=== PATIENT | male | born 1955 | race Hispanic/Latino ===

== ENCOUNTER 2020-12-05 13:20 | Inpatient (IN) | payer MEDICARE, OTHER ==
[~2020-12-05] VITALS: Ht 157.5 cm; Wt 79.4 kg
[2020-12-05] MEDS ORDERED: ASPIRIN 81 MG CHEW TAB PO ONE (14:00)
[2020-12-05] MEDS ORDERED: MORPHINE SULFATE INJ 4 MG/ML INJ 1ML IV STA (14:17)
[2020-12-05] MEDS ORDERED: SODIUM CHLORIDE 0.9% 1000ML 1,000 ML IV STA (14:17)
[2020-12-05] MEDS ORDERED: ONDANSETRON HCL INJ 2MG/ML 2ML 2 MG/ML VIAL IV STA (14:17)
[2020-12-05 14:20] LABS: BASOPHILS % 0.2 % (0.0-1.0); EOSINOPHILS % 0.1 % (0.0-6.0); HEMOGLOBIN 12.7 g/dL (14.0-18.0); LYMPHOCYTES # (AUTO) 1.3 (1.0-3.2); LYMPHOCYTES % 8.2 % (18.0-39.1); MEAN CORPUSCULAR HEMOGLOBIN 29.4 pg (28-32); MEAN CORPUSCULAR HGB CONC 32.6 g/dL (31-35); MEAN CORPUSCULAR VOLUME 90.3 fL (81-99); MONOCYTES % 6.4 % (4.4-11.3); NEUTROPHILS # (AUTO) 13.7 (2.1-6.9); NEUTROPHILS % 83.8 % (38.7-80.0); PLATELET COUNT 291 x10e3/uL (140-360); RED BLOOD COUNT 4.32 x10e6/uL (4.3-5.7); RED CELL DISTRIBUTION WIDTH 12.9 % (11.7-14.4)
[2020-12-05 14:38] LABS: ALBUMIN 3.4 g/dL (3.5-5.0); ANION GAP 16.5 mmol/L (8-16); CALCIUM 8.3 mg/dL (8.4-10.2); CREATININE, SERUM 1.02 mg/dL (0.72-1.25); POTASSIUM 3.5 mmol/L (3.5-5.1)
[2020-12-05 14:46] LABS: CLARITY,URINE CLEAR (CLEAR); COLOR,URINE YELLOW (YELLOW); LEUKOCYTE ESTERASE ,URINE NEGATIVE (NEGATIVE); NITRITE,URINE NEGATIVE (NEGATIVE)
[2020-12-05 14:47] LABS: AMORPHOUS SEDIMENT,URINE FEW (FEW); KETONES,URINE TRACE (NEGATIVE); PROTEIN,URINE DIPSTICK TRACE (NEGATIVE); URINE UROBILINOGEN 0.2 mg/dL (0.2 - 1)
[2020-12-05 14:48] LABS: CREATINE KINASE MB 0.4 ng/mL (0-5.0); MUCUS,URINE FEW (RARE)
[2020-12-05 14:49] LABS: EPITHELIAL CELLS,URINE FEW /LPF; RBC,URINE 0-5 /HPF (0-5); WBC,URINE (MAN) 0-5 /HPF (0-5)
[2020-12-05] MEDS ORDERED: SODIUM CHLORIDE 0.9% 50ML 50 ML ONE (15:32)
[2020-12-05] MEDS ORDERED: IOPAMIDOL 370 MG/ML 200 ML INFUS..BTL INJ ONE (15:32)
[2020-12-05 15:46] LABS: AMYLASE 68 U/L (25-125); LIPASE 44 U/L (8-78)
[2020-12-05] MEDS ORDERED: PIPERACILLIN/TAZOBACTAM 3.375 GM in SODIUM CHLORIDE 0.9% 50ML 50 ML IV ONE (17:45)
[2020-12-05] MEDS ORDERED: SODIUM CHLORIDE 0.9% 100 ML ONE (18:05)
[2020-12-05] MEDS ORDERED: PIPERACILLIN/TAZOBACTAM 3.375 GM VIAL ONE (18:05)
[2020-12-05] MEDS ORDERED: ACETAMINOPHEN 325 MG TAB PO ONE (18:15)
[2020-12-05] MEDS ORDERED: ACETAMINOPHEN 325 MG TAB ONE (18:15)
[2020-12-05] MEDS ORDERED: ACETAMINOPHEN 1000 MG/100 ML IV PRN (19:45)
[2020-12-05] MEDS ORDERED: BENZOCAINE/TETRACAINE/BUTAMBEN AERO SPRAY 56 GM CAN ONE (20:09)
[2020-12-05] MEDS: SODIUM CHLORIDE 0.9% 1000ML 1,000 ML IV SCH (20:12)
[2020-12-05] MEDS ORDERED: BENZOCAINE/TETRACAINE/BUTAMBEN AERO SPRAY 56 GM CAN TOP ONE (20:15)
[2020-12-06] MEDS: PIPERACILLIN/TAZOBACTAM 3.375 GM in SODIUM CHLORIDE 0.9% 50ML 50 ML IV SCH ×4 (03:00→21:29)
[2020-12-06] MEDS: ONDANSETRON HCL INJ 2MG/ML 2ML 2 MG/ML VIAL IV PRN (09:01)
[2020-12-06] MEDS: SODIUM CHLORIDE 0.9% 1000ML 1,000 ML IV SCH ×3 (09:01→19:45)
[2020-12-06] MEDS: MORPHINE SULFATE INJ 4 MG/ML INJ 1ML IV PRN (09:01)
[2020-12-06 13:13] LABS: BASOPHILS # (AUTO) 0.1 (0.0-0.1); BASOPHILS % 0.4 % (0.0-1.0); EOSINOPHILS # (AUTO) 0.1 (0.0-0.4); EOSINOPHILS % 0.7 % (0.0-6.0); HEMATOCRIT 36.3 % (38.2-49.6); HEMOGLOBIN 11.6 g/dL (14.0-18.0); LYMPHOCYTES # (AUTO) 2.5 (1.0-3.2); LYMPHOCYTES % 17.8 % (18.0-39.1); MEAN CORPUSCULAR HEMOGLOBIN 29.3 pg (28-32); MEAN CORPUSCULAR VOLUME 91.7 fL (81-99); MONOCYTES # (AUTO) 1.4 (0.2-0.8); MONOCYTES % 9.9 % (4.4-11.3); NEUTROPHILS # (AUTO) 9.9 (2.1-6.9); NEUTROPHILS % 70.3 % (38.7-80.0); PLATELET COUNT 235 x10e3/uL (140-360); RED BLOOD COUNT 3.96 x10e6/uL (4.3-5.7); RED CELL DISTRIBUTION WIDTH 13.2 % (11.7-14.4)
[2020-12-06 13:42] LABS: ALBUMIN 2.7 g/dL (3.5-5.0); ANION GAP 12.5 mmol/L (8-16); CALCIUM 7.6 mg/dL (8.4-10.2); CREATININE, SERUM 0.79 mg/dL (0.72-1.25); POTASSIUM 3.5 mmol/L (3.5-5.1)
[2020-12-06 17:44] VITALS: BP 115/75
[2020-12-06 18:22] VITALS: BP 115/75
[2020-12-06 20:19] VITALS: BP 127/79
[2020-12-06 20:49] VITALS: BP 127/78
[2020-12-06] MEDS ORDERED: OXYCODONE HCL20 M1 PO (21:05)
[2020-12-06] MEDS ORDERED: MAGNESIUM OXID400 MG PO (21:05)
[2020-12-06] MEDS ORDERED: TACROLIMUS1 MG PO (21:06)
[2020-12-06] MEDS ORDERED: ASPIRIN81 MG PO (21:07)
[2020-12-06] MEDS ORDERED: FUROSEMIDE40 MG PO (21:07)
[2020-12-06] MEDS ORDERED: PROTONIX20 MG PO (21:09)
[2020-12-06] MEDS ORDERED: NIFEDIPINE ER30 M1 PO (21:09)
[2020-12-06] MEDS ORDERED: LISINOPRIL10 MG PO (21:10)
[2020-12-06] MEDS ORDERED: FEROSUL325 MG PO (21:11)
[2020-12-06] MEDS ORDERED: LORATADINE10 MG PO (21:14)
[2020-12-06] MEDS ORDERED: FLONASE ALLERG9.9 ML INH (21:14)
[2020-12-06] MEDS ORDERED: CENTRUM SILVER1 EAC3 (21:15)
[2020-12-06] MEDS ORDERED: POLYETHYLENE GL17 GM PO (21:16)
[2020-12-07] VITALS (7 sets, daily range): BP systolic 122–147; BP diastolic 66–90
[2020-12-07] MEDS ORDERED: IRON PO (01:02)
[2020-12-07] MEDS: SODIUM CHLORIDE 0.9% 1000ML 1,000 ML IV SCH ×3 (01:12→19:45)
[2020-12-07] MEDS: PIPERACILLIN/TAZOBACTAM 3.375 GM in SODIUM CHLORIDE 0.9% 50ML 50 ML IV SCH ×3 (05:20→21:44)
[2020-12-07] MEDS: MORPHINE SULFATE INJ 4 MG/ML INJ 1ML IV PRN (10:37)
[2020-12-08] VITALS (7 sets, daily range): BP systolic 127–158; BP diastolic 64–99
[2020-12-08] MEDS: PIPERACILLIN/TAZOBACTAM 3.375 GM in SODIUM CHLORIDE 0.9% 50ML 50 ML IV SCH ×3 (06:20→22:24)
[2020-12-08] MEDS: SODIUM CHLORIDE 0.9% 1000ML 1,000 ML IV SCH ×2 (06:21→12:08)
[2020-12-08 08:29] LABS: ANION GAP 15.5 mmol/L (8-16); CALCIUM 8.3 mg/dL (8.4-10.2); CREATININE, SERUM 0.7 mg/dL (0.72-1.25); POTASSIUM 3.5 mmol/L (3.5-5.1)
[2020-12-08 08:46] LABS: MAGNESIUM 1.4 MG/DL (1.3-2.1); PHOSPHORUS 2.5 MG/DL (2.3-4.7)
[2020-12-08] MEDS: MORPHINE SULFATE INJ 4 MG/ML INJ 1ML IV PRN (14:28)
[2020-12-09] VITALS (8 sets, daily range): BP systolic 106–141; BP diastolic 70–78
[2020-12-09] MEDS: SODIUM CHLORIDE 0.9% 1000ML 1,000 ML IV SCH ×4 (03:45→19:45)
[2020-12-09 05:40] LABS: BASOPHILS # (AUTO) 0.1 (0.0-0.1); BASOPHILS % 0.8 % (0.0-1.0); EOSINOPHILS # (AUTO) 0.2 (0.0-0.4); EOSINOPHILS % 2.7 % (0.0-6.0); HEMATOCRIT 36.7 % (38.2-49.6); LYMPHOCYTES # (AUTO) 2.1 (1.0-3.2); LYMPHOCYTES % 34.2 % (18.0-39.1); MEAN CORPUSCULAR HEMOGLOBIN 29.3 pg (28-32); MEAN CORPUSCULAR HGB CONC 32.7 g/dL (31-35); MEAN CORPUSCULAR VOLUME 89.7 fL (81-99); MONOCYTES # (AUTO) 0.7 (0.2-0.8); MONOCYTES % 11.2 % (4.4-11.3); NEUTROPHILS # (AUTO) 3.2 (2.1-6.9); NEUTROPHILS % 50.6 % (38.7-80.0); PLATELET COUNT 271 x10e3/uL (140-360); RED BLOOD COUNT 4.09 x10e6/uL (4.3-5.7); RED CELL DISTRIBUTION WIDTH 12.9 % (11.7-14.4)
[2020-12-09] MEDS: PIPERACILLIN/TAZOBACTAM 3.375 GM in SODIUM CHLORIDE 0.9% 50ML 50 ML IV SCH ×3 (05:54→20:43)
[2020-12-09 05:55] LABS: ANION GAP 12.7 mmol/L (8-16); BLOOD UREA NITROGEN < 5 mg/dL (7-26); CALCIUM 8.3 mg/dL (8.4-10.2); CARBON DIOXIDE 23 mmol/L (22-29); CHLORIDE 109 mmol/L (98-107); CREATININE, SERUM 0.68 mg/dL (0.72-1.25); EST GLOMERULAR FILTRATION RATE 116 ML/MIN (60-); GLUCOSE 127 mg/dL (74-118); POTASSIUM 3.7 mmol/L (3.5-5.1); SODIUM 141 mmol/L (136-145)
[2020-12-09 06:31] LABS: BILIRUBIN,DIRECT 0.2 mg/dL (0.0-0.5); MAGNESIUM 1.6 MG/DL (1.3-2.1); PHOSPHORUS 3.7 MG/DL (2.3-4.7)
[2020-12-09 07:06] LABS: BUN/CREATININE RATIO 7 (6-25)
[2020-12-09] MEDS: TACROLIMUS 1 MG CAP PO SCH (20:43)
[2020-12-09] MEDS: MORPHINE SULFATE INJ 4 MG/ML INJ 1ML IV PRN (20:53)
[2020-12-10] VITALS (8 sets, daily range): BP systolic 122–148; BP diastolic 68–79
[2020-12-10] MEDS: PIPERACILLIN/TAZOBACTAM 3.375 GM in SODIUM CHLORIDE 0.9% 50ML 50 ML IV SCH ×3 (05:47→22:15)
[2020-12-10] MEDS: SODIUM CHLORIDE 0.9% 1000ML 1,000 ML IV SCH ×3 (05:48→19:45)
[2020-12-10] MEDS: LISINOPRIL 10 MG TAB PO SCH (09:56)
[2020-12-10] MEDS: NIFEDIPINE CR 30 MG TAB PO SCH (09:56)
[2020-12-10] MEDS: TACROLIMUS 1 MG CAP PO SCH ×2 (17:33→22:15)
[2020-12-10] MEDS: ONDANSETRON HCL INJ 2MG/ML 2ML 2 MG/ML VIAL IV PRN (23:50)
[2020-12-10] MEDS: MORPHINE SULFATE INJ 4 MG/ML INJ 1ML IV PRN (23:50)
[2020-12-11 01:02] VITALS: BP 106/68
[2020-12-11] MEDS: SODIUM CHLORIDE 0.9% 1000ML 1,000 ML IV SCH (05:25)
[2020-12-11] MEDS: PIPERACILLIN/TAZOBACTAM 3.375 GM in SODIUM CHLORIDE 0.9% 50ML 50 ML IV SCH (05:25)
[2020-12-11 05:39] VITALS: BP 127/66
[2020-12-11 06:55] LABS: BASOPHILS # (AUTO) 0.1 (0.0-0.1); BASOPHILS % 1.2 % (0.0-1.0); EOSINOPHILS # (AUTO) 0.2 (0.0-0.4); EOSINOPHILS % 3.3 % (0.0-6.0); HEMATOCRIT 36.6 % (38.2-49.6); HEMOGLOBIN 11.9 g/dL (14.0-18.0); LYMPHOCYTES # (AUTO) 2.3 (1.0-3.2); LYMPHOCYTES % 37.3 % (18.0-39.1); MEAN CORPUSCULAR HEMOGLOBIN 29.6 pg (28-32); MEAN CORPUSCULAR HGB CONC 32.5 g/dL (31-35); MONOCYTES # (AUTO) 0.9 (0.2-0.8); MONOCYTES % 14.1 % (4.4-11.3); NEUTROPHILS # (AUTO) 2.7 (2.1-6.9); NEUTROPHILS % 43.8 % (38.7-80.0); PLATELET COUNT 288 x10e3/uL (140-360); RED BLOOD COUNT 4.02 x10e6/uL (4.3-5.7); RED CELL DISTRIBUTION WIDTH 13.3 % (11.7-14.4)
[2020-12-11 07:16] LABS: ANION GAP 12.6 mmol/L (8-16); BLOOD UREA NITROGEN < 5 mg/dL (7-26); CALCIUM 8.4 mg/dL (8.4-10.2); CARBON DIOXIDE 22 mmol/L (22-29); CHLORIDE 108 mmol/L (98-107); CREATININE, SERUM 0.66 mg/dL (0.72-1.25); EST GLOMERULAR FILTRATION RATE 120 ML/MIN (60-); GLUCOSE 117 mg/dL (74-118); MAGNESIUM 1.6 MG/DL (1.3-2.1); POTASSIUM 3.6 mmol/L (3.5-5.1); SODIUM 139 mmol/L (136-145)
[2020-12-11 07:17] LABS: BUN/CREATININE RATIO 8 (6-25)
[2020-12-11 08:09] VITALS: BP 132/66
[2020-12-11 08:30] VITALS: BP 132/66
[2020-12-11] MEDS: LISINOPRIL 10 MG TAB PO SCH (09:00)
[2020-12-11] MEDS: NIFEDIPINE CR 30 MG TAB PO SCH (09:00)
[2020-12-11] MEDS: TACROLIMUS 1 MG CAP PO SCH (09:00)
[2020-12-11] MEDS ORDERED: ZOFRAN4 MG PO (09:11)
[2020-12-11] MEDS ORDERED: ONDANSETRON HCL 4 MG ORAL DISINTEGRATING TAB PO PRN (11:45)
[2020-12-12] MEDS ORDERED: PANTOPRAZOLE SOD 40 MG TABEC PO SCH (07:30)
== END 2020-12-11 12:51 | disposition home or self-care (01) | DRG 872 ==
LOC: ER 14:11 → ERHOLD 19:38 → MED/SURG2 12-06 16:44
PROVIDERS: ADMIT Internal Medicine; ATTEND Internal Medicine
DX: A41.9 Sepsis, unspecified organism (principal); K56.609 Unspecified intestinal obstruction, unspecified as to partial versus complete obstruction; Z94.4 Liver transplant status; Z20.822 Contact with and (suspected) exposure to COVID-19; F10.21 Alcohol dependence, in remission; I10 Essential (primary) hypertension; R91.1 Solitary pulmonary nodule; E27.9 Disorder of adrenal gland, unspecified
CPT/HCPCS: 36415; 74018; 74177; 80048; 80053; 80076; 81001; 82150; 82550; 82553; 83605; 83690; 83735; 84100; 84484; 85025; 87040; 87493; 93005; 99251; J2270; J2405; J2543; J7030; J7050; J7507; Q9967; U0002

== ENCOUNTER 2021-11-20 15:05 | Emergency (ER) | payer MEDICARE, OTHER ==
[~2021-11-20] VITALS: Ht 157.5 cm; Wt 79.4 kg
[~2021-11-20 15:05] MED LIST: ASPIRIN81 MG PO; CENTRUM SILVER1 EAC3; FEROSUL325 MG PO; FLONASE ALLERG9.9 ML INH; FUROSEMIDE40 MG PO; IRON PO; LISINOPRIL10 MG PO; LORATADINE10 MG PO; MAGNESIUM OXID400 MG PO; NIFEDIPINE ER30 M1 PO; OXYCODONE HCL20 M1 PO; POLYETHYLENE GL17 GM PO; PROTONIX20 MG PO; TACROLIMUS1 MG PO; ZOFRAN4 MG PO
[2021-11-20] MEDS ORDERED: SODIUM CHLORIDE 0.9% 500ML 500 ML IV ONE ×2 (15:30→16:30)
[2021-11-20 15:50] LABS: BASOPHILS % 0.3 % (0.0-1.0); EOSINOPHILS % 0.5 % (0.0-6.0); HEMATOCRIT 25.5 % (38.2-49.6); HEMOGLOBIN 7.6 g/dL (14.0-18.0); LYMPHOCYTES # (AUTO) 0.7 (1.0-3.2); LYMPHOCYTES % 11.1 % (18.0-39.1); MEAN CORPUSCULAR HEMOGLOBIN 23.8 pg (28-32); MEAN CORPUSCULAR HGB CONC 29.8 g/dL (31-35); MEAN CORPUSCULAR VOLUME 79.7 fL (81-99); MONOCYTES # (AUTO) 0.9 (0.2-0.8); MONOCYTES % 14.1 % (4.4-11.3); NEUTROPHILS # (AUTO) 4.4 (2.1-6.9); NEUTROPHILS % 72.8 % (38.7-80.0); PLATELET COUNT 329 x10e3/uL (140-360); RED CELL DISTRIBUTION WIDTH 18.1 % (11.7-14.4)
[2021-11-20 15:58] LABS: INR 1.58; PROTHROMBIN TIME 20.2 seconds (11.9-14.5)
[2021-11-20 15:59] LABS: PARTIAL THROMBOPLASTIN TIME 49.1 seconds (23.8-35.5)
[2021-11-20 16:06] LABS: ALBUMIN 2.2 g/dL (3.5-5.0); ALBUMIN/GLOBULIN RATIO 0.4 (0.8-2.0); ANION GAP 16.5 mmol/L (8-16); CREATININE, SERUM 1.5 mg/dL (0.72-1.25); MAGNESIUM 1.6 MG/DL (1.3-2.1); POTASSIUM 3.5 mmol/L (3.5-5.1)
[2021-11-20 16:13] LABS: CREATINE KINASE MB 0.8 ng/mL (0-5.0)
[2021-11-20 16:23] LABS: B-TYPE NATRIURETIC PEPTIDE2 97.1 pg/mL (0-100)
[2021-11-20 16:47] LABS: CLARITY,URINE HAZY (CLEAR); COLOR,URINE AMBER (YELLOW)
[2021-11-20 16:48] LABS: AMORPHOUS SEDIMENT,URINE FEW (FEW); BACTERIA,URINE FEW /HPF; EPITHELIAL CELLS,URINE FEW /LPF; KETONES,URINE TRACE (NEGATIVE); LEUKOCYTE ESTERASE ,URINE SMALL (NEGATIVE); NITRITE,URINE NEGATIVE (NEGATIVE); PROTEIN,URINE DIPSTICK 2+ (NEGATIVE); RBC,URINE >50 /HPF (0-5); URINE UROBILINOGEN 0.2 mg/dL (0.2 - 1)
[2021-11-20 16:49] LABS: MUCUS,URINE FEW (RARE)
[2021-11-20] MEDS ORDERED: Vancomycin IV 1 GM in SODIUM CHLORIDE 0.9% 250ML 250 ML IV ONE (17:00)
[2021-11-20] MEDS ORDERED: SODIUM CHLORIDE 0.9% 1000ML 1,000 ML IV STA (17:11)
[2021-11-20] MEDS ORDERED: SODIUM CHLORIDE 0.9% 1000ML 1,000 ML IV SCH (18:45)
[2021-11-20] MEDS ORDERED: SODIUM CHLORIDE 0.9% 1000ML 1,000 ML ONE (18:52)
== END 2021-11-20 21:19 | disposition other institution (70) ==
LOC: ER 15:20
DX: R50.9 Fever, unspecified (principal); A41.9 Sepsis, unspecified organism; U07.1 COVID-19; L03.116 Cellulitis of left lower limb; M86.9 Osteomyelitis, unspecified; I10 Essential (primary) hypertension; Z89.512 Acquired absence of left leg below knee; Z94.4 Liver transplant status
CPT/HCPCS: 36415; 71045; 73590; 80053; 81001; 82550; 82553; 83605; 83735; 83880; 84484; 85025; 85610; 85730; 87040; 87086; 93005; 99284; J2543; J3370; J7030; J7040; J7050; U0002

== ENCOUNTER → 2023-12-06 | Outpatient (REF) | payer MEDICARE, OTHER ==
[~2023-12-06] MED LIST changes: +ELIQUIS5 MG PO; +GABAPENTIN300 MG PO; +LOSARTAN POTASS50 MG PO; +MAGNESIUM OXID400 M1 PO; +METOPROLOL SUCC25 MG PO; +OS-CAL 500+D T1 EACH PO; +PANTOPRAZOLE SO40 MG PO; +RESTASIS1 EACH OU; +TAMSULOSIN PO; +TRAZODONE HCL50 MG PO
== END ==
LOC: RAD 11:35
PROVIDERS: ATTEND Anesthesiology Pain Medicine
DX: M16.0 Bilateral primary osteoarthritis of hip (principal)
CPT/HCPCS: 73522

== ENCOUNTER 2024-08-02 14:53 | Emergency (ER) | payer MEDICARE, MEDICAID ==
[~2024-08-02] VITALS: Ht 175.3 cm; Wt 99.8 kg
[2024-08-02 16:20] LABS: BASOPHILS # (AUTO) 0.1 (0.0-0.1); BASOPHILS % 0.7 % (0.0-1.0); EOSINOPHILS # (AUTO) 0.2 (0.0-0.4); EOSINOPHILS % 2.5 % (0.0-6.0); HEMATOCRIT 32.7 % (38.2-49.6); HEMOGLOBIN 10.2 g/dL (14.0-18.0); LYMPHOCYTES # (AUTO) 2.2 (1.0-3.2); LYMPHOCYTES % 31.3 % (18.0-39.1); MEAN CORPUSCULAR HGB CONC 31.2 g/dL (31-35); MEAN CORPUSCULAR VOLUME 83.2 fL (81-99); MONOCYTES # (AUTO) 0.8 (0.2-0.8); MONOCYTES % 11.9 % (4.4-11.3); NEUTROPHILS # (AUTO) 3.7 (2.1-6.9); NEUTROPHILS % 53.2 % (38.7-80.0); PLATELET COUNT 234 x10e3/uL (140-360); RED BLOOD COUNT 3.93 x10e6/uL (4.3-5.7); WHITE BLOOD COUNT 6.89 x10e3/uL (4.8-10.8)
[2024-08-02 16:24] LABS: INR 0.94; PROTHROMBIN TIME 13.2 seconds (11.9-14.5)
[2024-08-02 16:35] LABS: ALBUMIN 3.3 g/dL (3.5-5.0); ALBUMIN/GLOBULIN RATIO 0.8 (0.8-2.0); ANION GAP 15.3 mmol/L (8-16); BILIRUBIN,TOTAL 0.4 mg/dL (0.2-1.2); CALCIUM 8.6 mg/dL (8.4-10.2); CREATININE, SERUM 0.92 mg/dL (0.72-1.25); MAGNESIUM 1.6 MG/DL (1.3-2.1); POTASSIUM 4.3 mmol/L (3.5-5.1); TOTAL PROTEIN 7.6 g/dL (6.5-8.1)
[2024-08-02 16:40] LABS: TROPONIN I 0.005 ng/mL (0-0.300)
[2024-08-02 18:06] LABS: BILIRUBIN,URINE NEGATIVE (NEGATIVE); CLARITY,URINE CLEAR (CLEAR); COLOR,URINE YELLOW (YELLOW); GLUCOSE, URINE NEGATIVE (NEGATIVE); KETONES,URINE NEGATIVE (NEGATIVE); LEUKOCYTE ESTERASE ,URINE NEGATIVE (NEGATIVE); NITRITE,URINE NEGATIVE (NEGATIVE); PH,URINE 6 (5 - 7); PROTEIN,URINE DIPSTICK 1+ (NEGATIVE); URINE UROBILINOGEN 0.2 mg/dL (0.2 - 1)
[2024-08-02 18:26] LABS: BACTERIA,URINE FEW /HPF
[2024-08-02] MEDS ORDERED: MECLIZINE HCL12.5 MG PO (18:34)
[2024-08-02 19:04] VITALS: PULSE 77; RESP 18; TEMP 98.2
[2024-08-02 19:39] VITALS: BP 128/70; O2SAT 99
== END 2024-08-02 19:25 | disposition home or self-care (01) ==
LOC: ER 16:12
DX: R42 Dizziness and giddiness (principal); I10 Essential (primary) hypertension; E11.9 Type 2 diabetes mellitus without complications; I50.9 Heart failure, unspecified; I48.91 Unspecified atrial fibrillation; K76.9 Liver disease, unspecified; D64.9 Anemia, unspecified; M19.09 Primary osteoarthritis, other specified site; Z86.718 Personal history of other venous thrombosis and embolism
CPT/HCPCS: 36415; 70450; 71045; 74176; 80053; 81001; 82550; 83735; 83880; 84484; 85025; 85610; 85730; 87086; 93005; 99284

== ENCOUNTER 2024-09-23 09:28 | Inpatient (IN) | payer MEDICARE ==
[~2024-09-23] VITALS: Ht 175.3 cm; Wt 99.8 kg
[~2024-09-23 09:28] MED LIST changes: +MECLIZINE HCL12.5 MG PO
[2024-09-23 09:35] VITALS: TEMP 98.4
[2024-09-23 10:09] LABS: BASOPHILS # (AUTO) 0.1 (0.0-0.1); BASOPHILS % 0.9 % (0.0-1.0); EOSINOPHILS # (AUTO) 0.3 (0.0-0.4); EOSINOPHILS % 4.1 % (0.0-6.0); HEMATOCRIT 29.7 % (38.2-49.6); HEMOGLOBIN 8.6 g/dL (14.0-18.0); LYMPHOCYTES # (AUTO) 1.9 (1.0-3.2); LYMPHOCYTES % 28.8 % (18.0-39.1); MEAN CORPUSCULAR HEMOGLOBIN 21.7 pg (28-32); MONOCYTES # (AUTO) 0.7 (0.2-0.8); MONOCYTES % 10.6 % (4.4-11.3); NEUTROPHILS # (AUTO) 3.6 (2.1-6.9); NEUTROPHILS % 54.4 % (38.7-80.0); PLATELET COUNT 264 x10e3/uL (140-360); RED BLOOD COUNT 3.96 x10e6/uL (4.3-5.7); RED CELL DISTRIBUTION WIDTH 18.6 % (11.7-14.4); WHITE BLOOD COUNT 6.63 x10e3/uL (4.8-10.8)
[2024-09-23 10:35] LABS: INR 1.33; PROTHROMBIN TIME 17.6 seconds (11.9-14.5)
[2024-09-23 10:36] LABS: PARTIAL THROMBOPLASTIN TIME 36.5 seconds (23.8-35.5)
[2024-09-23 10:46] LABS: ALBUMIN 3.4 g/dL (3.5-5.0); ALBUMIN/GLOBULIN RATIO 0.8 (0.8-2.0); ANION GAP 14.2 mmol/L (8-16); BILIRUBIN,TOTAL 0.4 mg/dL (0.2-1.2); CALCIUM 8.7 mg/dL (8.4-10.2); CREATININE, SERUM 0.9 mg/dL (0.72-1.25); MAGNESIUM 1.4 MG/DL (1.3-2.1); POTASSIUM 4.2 mmol/L (3.5-5.1); TOTAL PROTEIN 7.5 g/dL (6.5-8.1)
[2024-09-23 10:52] LABS: TROPONIN I 0.011 ng/mL (0-0.300)
[2024-09-23] MEDS ORDERED: IOPAMIDOL 370 MG/ML 100 ML INFUS..BTL INJ ONE (10:52)
[2024-09-23 12:30] VITALS: PULSE 67; RESP 18
[2024-09-23] MEDS ORDERED: ONDANSETRON HCL INJ 2MG/ML 2ML 2 MG/ML VIAL IV PRN (13:00)
[2024-09-23 14:00] VITALS: BP 143/65; PULSE 62; RESP 20; TEMP 98; O2SAT 99
[2024-09-23] MEDS ORDERED: FERROUS SULFAT325 MG PO (15:01)
[2024-09-23] MEDS ORDERED: FINASTERIDE5 MG PO (15:01)
[2024-09-23] MEDS ORDERED: MECLIZINE HCL12.5 MG PO (15:01)
[2024-09-23] MEDS ORDERED: HYDRALAZINE HCL25 MG PO (15:01)
[2024-09-23] MEDS ORDERED: MELATONIN3 MG PO (15:06)
[2024-09-23] MEDS ORDERED: LANTUS 3ML100 UNITS/ SC (15:06)
[2024-09-23 16:24] VITALS: BP 143/65; PULSE 62; RESP 20; TEMP 98; O2SAT 99
[2024-09-23 20:00] VITALS: BP 143/73; PULSE 65; RESP 20; TEMP 97.9; O2SAT 98
[2024-09-24] VITALS (9 sets, daily range): BP systolic 131–159; BP diastolic 58–79; PULSE 66–73; RESP 17–20; TEMP 97.3–98.2; O2SAT 96–100
[2024-09-24] MEDS ORDERED: DEXTROSE 50% SYRINGE 50 ML IV PRN (01:45)
[2024-09-24] MEDS ORDERED: MELATONIN 5 MG TABLET PO PRN (01:45)
[2024-09-24] MEDS ORDERED: TACROLIMUS1 MG PO (04:44)
[2024-09-24 06:44] LABS: BASOPHILS # (AUTO) 0.1 (0.0-0.1); BASOPHILS % 0.8 % (0.0-1.0); EOSINOPHILS # (AUTO) 0.3 (0.0-0.4); EOSINOPHILS % 5.4 % (0.0-6.0); HEMATOCRIT 27.8 % (38.2-49.6); LYMPHOCYTES % 31.2 % (18.0-39.1); MEAN CORPUSCULAR HEMOGLOBIN 21.8 pg (28-32); MEAN CORPUSCULAR HGB CONC 28.8 g/dL (31-35); MEAN CORPUSCULAR VOLUME 75.7 fL (81-99); MONOCYTES # (AUTO) 0.7 (0.2-0.8); MONOCYTES % 10.4 % (4.4-11.3); NEUTROPHILS # (AUTO) 3.3 (2.1-6.9); NEUTROPHILS % 51.7 % (38.7-80.0); PLATELET COUNT 245 x10e3/uL (140-360); RED BLOOD COUNT 3.67 x10e6/uL (4.3-5.7); RED CELL DISTRIBUTION WIDTH 18.8 % (11.7-14.4); WHITE BLOOD COUNT 6.32 x10e3/uL (4.8-10.8)
[2024-09-24 07:12] LABS: ALBUMIN/GLOBULIN RATIO 0.9 (0.8-2.0); BILIRUBIN,TOTAL 0.6 mg/dL (0.2-1.2); CALCIUM 8.3 mg/dL (8.4-10.2); CREATININE, SERUM 0.78 mg/dL (0.72-1.25); TOTAL PROTEIN 6.5 g/dL (6.5-8.1)
[2024-09-24] MEDS ORDERED: TACROLIMUS 1 MG CAP PO SCH (09:00)
[2024-09-24] MEDS: TACROLIMUS 1 MG CAP PO SCH ×2 (09:28→21:13)
[2024-09-24] MEDS: PANTOPRAZOLE SOD 40 MG TABEC PO SCH (09:29)
[2024-09-24] MEDS: FINASTERIDE 5 MG TAB PO SCH (09:29)
[2024-09-24] MEDS: FERROUS SULFATE 325 MG TAB PO SCH (09:29)
[2024-09-24] MEDS: MAGNESIUM OXIDE 400 MG TAB PO SCH (09:29)
[2024-09-24] MEDS: LOSARTAN POTASSIUM 25 MG TAB PO SCH (09:29)
[2024-09-24] MEDS: MECLIZINE HCL 12.5 MG TAB PO SCH (09:29)
[2024-09-24] MEDS: HYDRALAZINE HCL 25 MG TAB PO SCH (09:29)
[2024-09-24] MEDS: METOPROLOL SUCCINATE 25 MG TAB XL PO SCH (09:30)
[2024-09-24] MEDS: INSULIN GLARGINE 100 UNITS/ML VIAL SC SCH (09:32)
[2024-09-24] MEDS: INSULIN LISPRO 100 UNIT/1 ML 3ML VIAL SQ SCH (09:33)
[2024-09-24] MEDS: FLUTICASONE PROPIONATE NASAL SPRAY NS SCH (09:57)
[2024-09-24] MEDS: TAMSULOSIN HCL 0.4 MG CAP PO SCH (21:14)
[2024-09-25] VITALS (7 sets, daily range): BP systolic 105–162; BP diastolic 49–70; PULSE 70–83; RESP 18–20; TEMP 97.8–97.9; O2SAT 94–98
[2024-09-25] MEDS: IRON SUCROSE 100 MG in SODIUM CHLORIDE 0.9% 100 ML IV SCH (11:20)
[2024-09-25 14:39] LABS: BASOPHILS # (AUTO) 0.1 (0.0-0.1); BASOPHILS % 0.8 % (0.0-1.0); EOSINOPHILS # (AUTO) 0.2 (0.0-0.4); EOSINOPHILS % 3.6 % (0.0-6.0); HEMATOCRIT 31.3 % (38.2-49.6); HEMOGLOBIN 8.8 g/dL (14.0-18.0); LYMPHOCYTES # (AUTO) 2.2 (1.0-3.2); LYMPHOCYTES % 35.1 % (18.0-39.1); MEAN CORPUSCULAR HEMOGLOBIN 21.8 pg (28-32); MEAN CORPUSCULAR HGB CONC 28.1 g/dL (31-35); MEAN CORPUSCULAR VOLUME 77.5 fL (81-99); MONOCYTES # (AUTO) 0.7 (0.2-0.8); MONOCYTES % 11.3 % (4.4-11.3); NEUTROPHILS # (AUTO) 3.1 (2.1-6.9); NEUTROPHILS % 48.9 % (38.7-80.0); PLATELET COUNT 218 x10e3/uL (140-360); RED BLOOD COUNT 4.04 x10e6/uL (4.3-5.7); RED CELL DISTRIBUTION WIDTH 20.4 % (11.7-14.4); WHITE BLOOD COUNT 6.39 x10e3/uL (4.8-10.8)
[2024-09-25 15:07] LABS: ANION GAP 14.5 mmol/L (8-16); CALCIUM 8.6 mg/dL (8.4-10.2); CREATININE, SERUM 0.96 mg/dL (0.72-1.25); POTASSIUM 4.5 mmol/L (3.5-5.1)
[2024-09-25] MEDS: CIPROFLOXACIN-DEXAMETHASONE (OTIC) 7.5 ML BOTTLE OT SCH (15:13)
[2024-09-26] VITALS (8 sets, daily range): BP systolic 105–140; BP diastolic 49–64; PULSE 71–81; RESP 19–20; TEMP 97.6–98.2; O2SAT 94–99
[2024-09-27] VITALS: BP 125/62; PULSE 71; RESP 20; TEMP 97.7; O2SAT 98
[2024-09-27 04:00] VITALS: BP 132/61; PULSE 70; RESP 20; TEMP 97.7; O2SAT 99
[2024-09-27 08:17] VITALS: BP 140/69; PULSE 78; RESP 18; TEMP 97.2; O2SAT 99
[2024-09-27 08:42] VITALS: BP 140/69; PULSE 78; RESP 18; TEMP 97.2; O2SAT 99
[2024-09-27 13:01] VITALS: BP 143/67; PULSE 76; RESP 18; TEMP 97.2; O2SAT 98
[2024-09-30] MEDS ORDERED: FERROUS SULFATE 325 MG TAB PO SCH (09:30)
== END 2024-09-27 14:00 | disposition home or self-care (01) | DRG 811 ==
LOC: ER 09:39 → ERHOLD 12:47 → MED/SURG3 14:10 → OBSVTOIN 09-25 10:40
PROVIDERS: ADMIT Internal Medicine; ATTEND Internal Medicine
DX: D50.9 Iron deficiency anemia, unspecified (principal); I82.221 Chronic embolism and thrombosis of inferior vena cava; Z94.4 Liver transplant status; J98.11 Atelectasis; K74.60 Unspecified cirrhosis of liver; I11.0 Hypertensive heart disease with heart failure; I50.9 Heart failure, unspecified; E11.42 Type 2 diabetes mellitus with diabetic polyneuropathy; E11.65 Type 2 diabetes mellitus with hyperglycemia; E11.9 Type 2 diabetes mellitus without complications; I48.91 Unspecified atrial fibrillation; M19.90 Unspecified osteoarthritis, unspecified site; R53.81 Other malaise; H91.93 Unspecified hearing loss, bilateral; E66.9 Obesity, unspecified; Z68.32 Body mass index [BMI] 32.0-32.9, adult; Z79.51 Long term (current) use of inhaled steroids; Z79.82 Long term (current) use of aspirin; Z79.01 Long term (current) use of anticoagulants; Z90.49 Acquired absence of other specified parts of digestive tract; Z89.612 Acquired absence of left leg above knee; Z86.718 Personal history of other venous thrombosis and embolism; Z95.9 Presence of cardiac and vascular implant and graft, unspecified
CPT/HCPCS: 36415; 71045; 74177; 80048; 80053; 82550; 82728; 82948; 83735; 83880; 84484; 85025; 85610; 85730; 86850; 86900; 93005; 93970; 99252; 99284; G0378; J1756; J2470; J7050; J7507; Q9967